=== PATIENT | female | born 1990 | race Caucasian/White ===

== ENCOUNTER 2017-08-05 22:10 | Emergency (ER) | payer SELFPAY, OTHER ==
[2017-08-05] MEDS: HYDROcodone/APAP 5/325MG 1 TAB TABLET PO (23:52)
[2017-08-05] MEDS: CLINDAMYCIN 600MG PREMIX 50 ML IV (23:52)
== END 2017-08-06 00:26 | disposition home or self-care (01) ==
LOC: ER 08-06 00:26
DX: K04.7 Periapical abscess without sinus (principal)
CPT/HCPCS: 96365; 99284-25; J3490

== ENCOUNTER 2017-08-20 07:54 | Emergency (ER) | payer SELFPAY ==
[2017-08-20 08:34] LABS: ADD MAN DIFF? NO
[2017-08-20] MEDS: IV NORMAL SALINE 1000ML BAG 1,000 ML IV (08:35)
[2017-08-20] MEDS: ONDANSETRON PF 4 MG/2 ML VIAL. IV (08:36)
[2017-08-20 08:37] LABS: BASO # 0.1 x10^3/uL (0.0-0.2); BASO % 1 % (0-3); EOS # 0.2 x10^3/uL (0.0-0.7); EOS % 1 % (0-3); HEMATOCRIT 37.2 % (36.0-47.0); LYMPH # 2.6 x10^3/uL (1.0-4.8); LYMPH % 22 % (24-48); MEAN CORPUSCULAR HEMOGLOBIN 28 pg (25-35); MEAN CORPUSCULAR HGB CONC 32 g/dL (31-37); MEAN CORPUSCULAR VOLUME 87 fL (79-100); MONO # 0.5 x10^3/uL (0.0-1.1); MONO % 5 % (0-9); NEUT # 8.4 x10^3uL (1.8-7.7); NEUT % 71 % (31-73); PLATELET COUNT 395 x10^3/uL (140-400); RED BLOOD COUNT 4.29 x10^6/uL (3.50-5.40); RED CELL DISTRIBUTION WIDTH 14.7 % (11.5-14.5); WHITE BLOOD COUNT 11.8 x10^3/uL (4.0-11.0)
[2017-08-20 08:52] LABS: ANION GAP 10 (6-14); BLOOD UREA NITROGEN 9 mg/dL (7-20); BUN/CREATININE RATIO 11 (6-20); CALCIUM 8.8 mg/dL (8.5-10.1); CARBON DIOXIDE 26 mmol/L (21-32); CHLORIDE 104 mmol/L (98-107); CREATININE 0.8 mg/dL (0.6-1.0); GFR 87.4; GLUCOSE 126 mg/dL (70-99); POTASSIUM 3.7 mmol/L (3.5-5.1); SODIUM 140 mmol/L (136-145)
[2017-08-20 08:55] LABS: ALBUMIN 3.1 g/dL (3.4-5.0); ALBUMIN/GLOBULIN RATIO 0.8 (1.0-1.7); ALK PHOS 93 U/L (46-116); ALT (SGPT) 22 U/L (14-59); AST (SGOT) 16 U/L (15-37); TOTAL BILIRUBIN 0.2 mg/dL (0.2-1.0); TOTAL PROTEIN 6.8 g/dL (6.4-8.2)
[2017-08-20 10:43] LABS: URINE HCG POC HCG NEGATIVE (Negative)
[2017-08-20 10:43] LABS: BILIRUBIN,URINE NEGATIVE (NEG); CLARITY,URINE CLEAR; COLOR,URINE YELLOW; GLUCOSE,URINE NEGATIVE (NEG); NITRITE,URINE NEGATIVE (NEG); PROTEIN,URINE NEGATIVE (NEG-TRACE); UROBILINOGEN,URINE 0.2 mg/dL (0.2 mg/dL)
[2017-08-20] MEDS: KETOROLAC 30 MG/ML INJ. IV (11:13)
[2017-08-20 11:17] LABS: AMORPHOUS SEDIMENT,UR PRESENT /HPF; BACTERIA,URINE FEW /HPF (0-FEW); RBC,URINE 0 /HPF (0-2); SQUAMOUS EPITHELIAL CELL,UR MANY /LPF
== END 2017-08-20 11:48 | disposition home or self-care (01) ==
LOC: ER 07:54
DX: R11.2 Nausea with vomiting, unspecified (principal); R19.7 Diarrhea, unspecified; R10.13 Epigastric pain; R10.11 Right upper quadrant pain
CPT/HCPCS: 36415; 76705; 80053; 81001; 81025; 85025; 87086; 96361; 96374; 96375; 99285-25; J1885; J2405; J7030

== ENCOUNTER 2017-08-25 00:35 | Emergency (ER) | payer SELFPAY ==
[2017-08-25] MEDS: DEXAMETHASONE SOD PHOS 4 MG/ML VIAL IV (01:23)
[2017-08-25] MEDS: CYCLOBENZAPRINE 10 MG TABLET. PO (01:24)
== END 2017-08-25 01:30 | disposition home or self-care (01) ==
LOC: ER 00:35
DX: M54.41 Lumbago with sciatica, right side (principal)
CPT/HCPCS: 96374; 99284-25; J1100

== ENCOUNTER 2018-11-17 20:14 | Emergency (ER) | payer SELFPAY ==
[~2018-11-17] VITALS: Ht 160 cm; Wt 88.0 kg
[~2018-11-17 20:14] MED LIST: AMOX500C PO; CLIN150C14 PO; CLIN300C8 PO; CYCL10TA2 PO; HYDR-3164 PO; METH4TAB2 PO; ONDA4TAB10 SL
[2018-11-17 20:23] VITALS: BP 132/72
[2018-11-17] MEDS ORDERED: AMOX500T PO (20:47)
[2018-11-17] MEDS ORDERED: DICL50TA4 PO (20:47)
--- NOTE | 2018-11-17 20:48 | PHYS DOC ---
Past Medical History Past Medical History: No Pertinent History (YAAKOV MONTES DE OCA APRN) Past Surgical History: Other Additional Past Surgical Histo: Dental surgery. (YAAKOV MONTES DE OCA APRN) Alcohol Use: None Drug Use: None (YAAKOV MONTES DE OCA APRN) Adult General Chief Complaint Chief Complaint: DENTAL PROBLEM HPI HPI Patient is a 28 year old female who presents to the ED today complaining of 4 out of 10 throbbing intermittent right upper and lower gum dental pain that began yesterday. Denies any fever or trismus. States she does not have a dentist. (YAAKOV MONTES DE OCA APRN) Review of Systems Review of Systems Constitutional: Denies fever or chills [] HENT: Reports dental pain Musculoskeletal: Denies back pain or joint pain [] Integument: Denies rash or skin lesions [] Neurologic: Denies headache, focal weakness or sensory changes [] All other systems were reviewed and found to be within normal limits, except as documented in this note. (YAAKOV MONTES DE OCA APRN) Allergies Allergies Allergies Coded Allergies Type Severity Reaction Last Updated Verified No Known Drug Allergies 10/21/15 No (NATHAN BARBOUR MD) Physical Exam Physical Exam Constitutional: Well developed, well nourished, no acute distress, non-toxic appearance. [] HENT: Normocephalic, atraumatic, bilateral external ears normal, nose normal. [] Patient is missing most of her molars and premolars as well as deep to the upper gum. The remaining teeth are broken and severely decayed. Gum erythema is noted on the right lower gum. No obvious abscess noted. Skin: Warm, dry, no erythema, no rash. [] Neurologic: Alert and oriented X 3, normal motor function, normal sensory function, no focal deficits noted. [] Psychologic:flat (YAAKOV MONTES DE OCA APRN) Current Patient Data Vital Signs Vital Signs Date Time Temp Pulse Resp B/P (MAP) Pulse Ox O2 Delivery O2 Flow Rate FiO2 11/17/18 20:23 98.7 104 16 132/72 (92) 98 Room Air 98.7 (NATHAN BARBOUR MD) EKG EKG [] (YAAKOV MONTES DE OCA APRN) Radiology/Procedures Radiology/Procedures [] (YAAKOV MONTES DE OCA APRN) Course & Med Decision Making Course & Med Decision Making Pertinent Labs and Imaging studies reviewed. (See chart for details) Patient has infected dental caries. Her dental hygiene is also very poor. She was provided an intravenous. Discharged with amoxicillin and diclofenac. Follow- up in the next 1-2 weeks with a dentist. Dental list provided (YAAKOV MONTES DE OCA APRN) Course & Med Decision Making Staff Physician Addendum: I was working in the ER during the course of this patient's visit. I was available for consultation as needed, but I was not directly involved in the care of this patient. (NATHAN BARBOUR MD) Dragon Disclaimer Dragon Disclaimer This electronic medical record was generated, in whole or in part, using a voice recognition dictation system. (YAAKOV MONTES DE OCA APRN) Departure Departure Impression: Primary Impression: Dentalgia Additional Impression: Infected dental caries Disposition: HOME, SELF-CARE Condition: STABLE Referrals: NO PCP (PCP) follow up with a dentist from the list provided in 1 week Patient Instructions: Dental Caries, Dental Pain Additional Instructions: You were evaluated in the emergency room for dental infection. We put you on antibiotics and pain medications, take them as prescribed. Follow-up with the dentist from the list provided in the next 1-2 weeks. Scripts Diclofenac Sodium (DICLOFENAC SODIUM) 50 Mg Tablet.dr 1 TAB PO BID, #20 TAB 0 Refills Prov: YAAKOV MONTES DE OCA APRN 11/17/18 Amoxicillin (AMOXICILLIN) 500 Mg Tablet 1 TAB PO BID, #20 TAB Prov: YAAKOV MONTES DE OCA APRN 11/17/18 Problem Qualifiers YAAKOV MONTES DE OCA APRN Nov 17, 2018 20:48 NATHAN BARBOUR MD Nov 18, 2018 05:16
== END 2018-11-17 20:57 | disposition home or self-care (01) ==
LOC: ER 20:14
DX: K02.9 Dental caries, unspecified (principal)
CPT/HCPCS: 99283

== ENCOUNTER 2018-12-22 16:28 | Emergency (ER) | payer SELFPAY ==
[~2018-12-22] VITALS: Ht 160 cm; Wt 88.0 kg
[~2018-12-22 16:28] MED LIST changes: +AMOX500T PO; +DICL50TA4 PO
[2018-12-22 18:00] VITALS: BP 138/87
[2018-12-22] MEDS ORDERED: CLIN300C8 PO (19:00)
--- NOTE | 2018-12-22 19:01 | PHYS DOC ---
Past Medical History Past Medical History: No Pertinent History Past Surgical History: Other Additional Past Surgical Histo: Dental surgery. Alcohol Use: None Drug Use: None Adult General Chief Complaint Chief Complaint: DENTAL PROBLEM HPI HPI Patient is a 28 year old female who presents with dental pain to her left upper jaw. She denies nausea or fever. She has numerous rotting teeth and does not see a dentist. Review of Systems Review of Systems Constitutional: Denies fever or chills [] Eyes: Denies change in visual acuity, redness, or eye pain [] HENT: See history of present illness Respiratory: Denies cough or shortness of breath [] Cardiovascular: No additional information not addressed in HPI [] Neurologic: Denies headache, focal weakness or sensory changes [] Endocrine: Denies polyuria or polydipsia [] All other systems were reviewed and found to be within normal limits, except as documented in this note. Allergies Allergies Allergies Coded Allergies Type Severity Reaction Last Updated Verified No Known Drug Allergies 10/21/15 No Physical Exam Physical Exam Constitutional: Well developed, well nourished, no acute distress, non-toxic appearance. [] HENT: Normocephalic, atraumatic, the patient has numerous rotting teeth with some erythema noted to the gumline Eyes: PERRLA, EOMI, conjunctiva normal, no discharge. [] Neck: Normal range of motion, no tenderness, supple, no stridor. [] Cardiovascular:Heart rate regular rhythm, no murmur [] Lungs & Thorax: Bilateral breath sounds clear to auscultation [] Neurologic: Alert and oriented X 3, normal motor function, normal sensory function, no focal deficits noted. [] Psychologic: Affect normal, judgement normal, mood normal. [] Current Patient Data Vital Signs Vital Signs Date Time Temp Pulse Resp B/P (MAP) Pulse Ox O2 Delivery O2 Flow Rate FiO2 12/22/18 18:00 98.1 98 18 138/87 (104) 99 Room Air 98.1 Lab Values Laboratory Tests Test 12/22/18 18:53 POC Urine HCG, Qualitative Hcg negative (Negative) EKG EKG [] Radiology/Procedures Radiology/Procedures [] Course & Med Decision Making Course & Med Decision Making Pertinent Labs and Imaging studies reviewed. (See chart for details) []The patient was strongly encouraged to follow up with a dentist. Dragon Disclaimer Dragon Disclaimer This electronic medical record was generated, in whole or in part, using a voice recognition dictation system. Departure Departure Impression: Primary Impression: Infected dental caries Disposition: 01 HOME, SELF-CARE Condition: STABLE Referrals: SANAZ PAUL MD (PCP) Patient Instructions: Dental Caries Additional Instructions: Take the medication as directed. Follow-up with a dentist at an earliest available appointment. You may use ibuprofen or Tylenol for pain. Scripts Clindamycin Hcl (CLINDAMYCIN HCL) 300 Mg Capsule 1 CAP PO TID for dental infection, #30 CAP Prov: DAVID WARD APRN 12/22/18 DAVID WARD APRN Dec 22, 2018 19:01
== END 2018-12-22 19:07 | disposition home or self-care (01) ==
LOC: ER 16:28
DX: K02.9 Dental caries, unspecified (principal)
CPT/HCPCS: 81025; 99283

== ENCOUNTER 2019-01-22 08:43 | Emergency (ER) | payer SELFPAY ==
[~2019-01-22] VITALS: Ht 160 cm; Wt 90.7 kg
[2019-01-22] MEDS ORDERED: IV NORMAL SALINE 1000ML BAG 1,000 ML IV SCH (08:55)
--- NOTE | 2019-01-22 09:01 | PHYS DOC ---
Past Medical History Past Medical History: No Pertinent History Past Surgical History: Other Additional Past Surgical Histo: Dental surgery. Smoking: Cigarettes Alcohol Use: None Drug Use: Methamphetamine (currently sober) Adult General Chief Complaint Chief Complaint: DIZZY/LIGHT HEADED HPI HPI patient is a 28-year-old female who presents to the emergency department for quin luation. She reports general malaise and just not feeling well, feeling dizzy and lightheaded, and shaky, after starting Cymbalta yesterday, to treat depression. She denies any pain, denies any headache, vision changes, chest pain, palpitations, shortness of breath, vomiting, diarrhea, or abdominal pain. Her LMP ended yesterday. There are no alleviating or exacerbating factors to her symptoms. Review of Systems Review of Systems Constitutional: Denies fever or chills [] Eyes: Denies change in visual acuity, redness, or eye pain [] HENT: Denies nasal congestion or sore throat [] Respiratory: Denies cough or shortness of breath [] Cardiovascular:The patient denies any shortness of breath, chest pain, palpitations, or orthopnea [] GI: Denies abdominal pain, vomiting, bloody stools or diarrhea [] : Denies dysuria or hematuria [] Musculoskeletal: Denies back pain or joint pain [] Integument: Denies rash or skin lesions [] Neurologic: Denies headache, focal weakness or sensory changes [] Endocrine: Denies polyuria or polydipsia [] All other systems were reviewed and found to be within normal limits, except as documented in this note. Current Medications Current Medications Current Medications Medications (Trade) Dose Ordered Sig/Aarti Start Time Stop Time Status Last Admin Dose Admin Sodium Chloride 1,000 ml @ 1,000 mls/hr Q1H 01/22/19 08:55 01/22/19 09:54 DC 01/22/19 09:20 1,000 MLS/HR Allergies Allergies Allergies Coded Allergies Type Severity Reaction Last Updated Verified No Known Drug Allergies 10/21/15 No Physical Exam Physical Exam PHYSICAL EXAM: CONSTITUTIONAL: Well developed, well nourished HEAD: normocephalic, atraumatic EENT: PERRL, EOMI. Conjunctivae normal color, sclerae non-icteric; moist mucous membranes. NECK: Supple, non-tender; no meningismus. LUNGS: Lungs CTA, breathing even and unlabored. Normal air movement. HEART: Regular rate and rhythm, no murmur CHEST: No deformity; non-tender ABDOMEN: The abdomen is soft, and non-tender, no masses or bruits. EXTREM: Normal ROM; no deformity, no calf tenderness. Normal pulses palpable in all extremities. There is no pedal edema. SKIN: No rash; no diaphoresis NEURO: Alert; normal speech and cognition; CN's grossly intact; strength grossly intact without focal deficit. BACK: No CVA TTP. PSYCHIATRIC: Moderately anxious affect. Current Patient Data Vital Signs Vital Signs Date Time Temp Pulse Resp B/P (MAP) Pulse Ox O2 Delivery O2 Flow Rate FiO2 01/22/19 08:51 98.4 75 18 133/74 (93) 97 Room Air 98.4 Lab Values Laboratory Tests Test 01/22/19 08:56 01/22/19 08:58 01/22/19 09:12 Urine Collection Type Unknown Urine Color Yellow Urine Clarity Clear Urine pH 5.5 Urine Specific [place] >=1.030 Urine Protein Negative mg/dL (NEG-TRACE) Urine Glucose (UA) Negative mg/dL (NEG) Urine Ketones (Stick) Negative mg/dL (NEG) Urine Blood Negative (NEG) Urine Nitrite Negative (NEG) Urine Bilirubin Negative (NEG) Urine Urobilinogen Dipstick 1.0 mg/dL (0.2 mg/dL) Urine Leukocyte Esterase Negative (NEG) Urine RBC 0 /HPF (0-2) Urine WBC 1-4 /HPF (0-4) Urine Squamous Epithelial Cells Mod /LPF Urine Bacteria Few /HPF (0-FEW) Urine Mucus Marked /LPF POC Urine HCG, Qualitative Hcg negative (Negative) White Blood Count 8.8 x10^3/uL (4.0-11.0) Red Blood Count 4.09 x10^6/uL (3.50-5.40) Hemoglobin 12.6 g/dL (12.0-15.5) Hematocrit 36.8 % (36.0-47.0) Mean Corpuscular Volume 90 fL (79-100) Mean Corpuscular Hemoglobin 31 pg (25-35) Mean Corpuscular Hemoglobin Concent 34 g/dL (31-37) Red Cell Distribution Width 14.0 % (11.5-14.5) Platelet Count 288 x10^3/uL (140-400) Neutrophils (%) (Auto) 71 % (31-73) Lymphocytes (%) (Auto) 21 % (24-48) L Monocytes (%) (Auto) 5 % (0-9) Eosinophils (%) (Auto) 2 % (0-3) Basophils (%) (Auto) 1 % (0-3) Neutrophils # (Auto) 6.2 x10^3/uL (1.8-7.7) Lymphocytes # (Auto) 1.9 x10^3/uL (1.0-4.8) Monocytes # (Auto) 0.4 x10^3/uL (0.0-1.1) Eosinophils # (Auto) 0.2 x10^3/uL (0.0-0.7) Basophils # (Auto) 0.1 x10^3/uL (0.0-0.2) Sodium Level 141 mmol/L (136-145) Potassium Level 4.0 mmol/L (3.5-5.1) Chloride Level 106 mmol/L (98-107) Carbon Dioxide Level 23 mmol/L (21-32) Anion Gap 12 (6-14) Blood Urea Nitrogen 17 mg/dL (7-20) Creatinine 0.8 mg/dL (0.6-1.0) Estimated GFR (Cockcroft-Gault) 86.7 BUN/Creatinine Ratio 21 (6-20) H Glucose Level 96 mg/dL (70-99) Calcium Level 9.1 mg/dL (8.5-10.1) Magnesium Level 1.9 mg/dL (1.8-2.4) Total Bilirubin 0.4 mg/dL (0.2-1.0) Aspartate Amino Transferase (AST) 29 U/L (15-37) Alanine Aminotransferase (ALT) 20 U/L (14-59) Alkaline Phosphatase 90 U/L (46-116) Total Protein 7.1 g/dL (6.4-8.2) Albumin 3.9 g/dL (3.4-5.0) Albumin/Globulin Ratio 1.2 (1.0-1.7) Thyroid Stimulating Hormone (TSH) 1.825 uIU/mL (0.358-3.74) Free Thyroxine 1.00 ng/dL (0.76-1.46) Laboratory Tests 01/22/19 09:12 Laboratory Tests 01/22/19 09:12 EKG EKG []Normal sinus rhythm with a normal rate, normal axis, normal intervals, there are no acute ischemic ST/T changes. Radiology/Procedures Radiology/Procedures [] Course & Med Decision Making Course & Med Decision Making Pertinent Lab studies reviewed. (See chart for details) []Patient condition remains stable. I discussed expectant and symptomatic management, the need for close follow-up with her PCP to discuss either continuing her stopping or changing the medication, and return precautions in detail. Dragon Disclaimer Dragon Disclaimer This electronic medical record was generated, in whole or in part, using a voice recognition dictation system. Departure Departure Impression: Primary Impression: Medication reaction Additional Impression: Dizziness Disposition: 01 HOME, SELF-CARE Condition: STABLE Referrals: SANAZ PAUL MD (PCP) Patient Instructions: Dizziness Problem Qualifiers PRATIBHA PRICE MD Jan 22, 2019 09:01
[2019-01-22 09:08] LABS: BILIRUBIN,URINE NEGATIVE (NEG); CLARITY,URINE CLEAR; COLOR,URINE YELLOW; NITRITE,URINE NEGATIVE (NEG); PH,URINE 5.5; PROTEIN,URINE NEGATIVE (NEG-TRACE)
--- NOTE | 2019-01-22 09:08 | EKG ---
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
[2019-01-22 09:16] LABS: SQUAMOUS EPITHELIAL CELL,UR MOD /LPF
[2019-01-22 09:17] LABS: BACTERIA,URINE FEW /HPF (0-FEW); RBC,URINE 0 /HPF (0-2)
[2019-01-22 09:21] LABS: BASO # 0.1 x10^3/uL (0.0-0.2); BASO % 1 % (0-3); EOS # 0.2 x10^3/uL (0.0-0.7); EOS % 2 % (0-3); HEMATOCRIT 36.8 % (36.0-47.0); HEMOGLOBIN 12.6 g/dL (12.0-15.5); LYMPH # 1.9 x10^3/uL (1.0-4.8); LYMPH % 21 % (24-48); MEAN CORPUSCULAR HEMOGLOBIN 31 pg (25-35); MEAN CORPUSCULAR HGB CONC 34 g/dL (31-37); MEAN CORPUSCULAR VOLUME 90 fL (79-100); MONO # 0.4 x10^3/uL (0.0-1.1); MONO % 5 % (0-9); NEUT # 6.2 x10^3/uL (1.8-7.7); NEUT % 71 % (31-73); PLATELET COUNT 288 x10^3/uL (140-400); RED BLOOD COUNT 4.09 x10^6/uL (3.50-5.40); WHITE BLOOD COUNT 8.8 x10^3/uL (4.0-11.0)
[2019-01-22 09:32] LABS: CALCIUM 9.1 mg/dL (8.5-10.1); CREATININE 0.8 mg/dL (0.6-1.0); GFR 86.7
[2019-01-22 09:38] LABS: ALBUMIN 3.9 g/dL (3.4-5.0); ALBUMIN/GLOBULIN RATIO 1.2 (1.0-1.7); MAGNESIUM 1.9 mg/dL (1.8-2.4); TOTAL BILIRUBIN 0.4 mg/dL (0.2-1.0); TOTAL PROTEIN 7.1 g/dL (6.4-8.2)
[2019-01-22 09:46] LABS: THYROID STIM HORMONE (TSH) 1.825 uIU/mL (0.358-3.74)
[2019-01-22 10:30] VITALS: BP 81/59
== END 2019-01-22 10:37 | disposition home or self-care (01) ==
LOC: ER 08:43
DX: R42 Dizziness and giddiness (principal); T43.215A Adverse effect of selective serotonin and norepinephrine reuptake inhibitors, initial encounter; F17.210 Nicotine dependence, cigarettes, uncomplicated; Y92.89 Other specified places as the place of occurrence of the external cause
CPT/HCPCS: 36415; 80053; 81001; 81025; 83735; 84439; 84443; 85025; 93005; 96360; 99285; J7030

== ENCOUNTER 2019-04-04 16:56 | Emergency (ER) | payer SELFPAY ==
[~2019-04-04] VITALS: Ht 160 cm; Wt 99.8 kg
[2019-04-04 17:10] VITALS: BP 150/75
[2019-04-04 17:21] LABS: BILIRUBIN,URINE NEGATIVE (NEG); CLARITY,URINE CLEAR; COLOR,URINE YELLOW; NITRITE,URINE NEGATIVE (NEG); PH,URINE 7.5; PROTEIN,URINE NEGATIVE (NEG-TRACE); UROBILINOGEN,URINE 0.2 mg/dL (0.2 mg/dL)
[2019-04-04 17:28] LABS: SQUAMOUS EPITHELIAL CELL,UR MANY /LPF
[2019-04-04 17:29] LABS: AMORPHOUS SEDIMENT,UR PRESENT /HPF; BACTERIA,URINE 0 /HPF (0-FEW); RBC,URINE 0 /HPF (0-2)
[2019-04-04] MEDS ORDERED: cefTRIAXone IM 250 MG VIAL IM ONE (18:15)
[2019-04-04] MEDS ORDERED: AZITHROMYCIN 250 MG TABLET. PO ONE (18:15)
--- NOTE | 2019-04-04 18:39 | PHYS DOC ---
Past Medical History Past Medical History: Anxiety, Depression Past Surgical History: Other Additional Past Surgical Histo: Dental surgery. Additional Information: VAPES Alcohol Use: None Drug Use: Methamphetamine Adult General Chief Complaint Chief Complaint: ABDOMINAL PAIN HPI HPI Patient is a 28 year old female who presents to the emergency department with complaints of irregular vaginal discharge and concerns of a trichomonas infection. Patient states she was informed yesterday of a recent sex partner testing positive for Trichomonas. She denies any pelvic pain or irregular vaginal bleeding or odor. Patient also denies any dysuria, hematuria, increased urinary frequency, low back pain, abdominal pain, or fever. All other ROS is neg unless otherwise noted in HPI. Review of Systems Review of Systems See Above Current Medications Current Medications Current Medications Medications (Trade) Dose Ordered Sig/Aarti Start Time Stop Time Status Last Admin Dose Admin Azithromycin (Zithromax) 1,000 mg 1X ONCE 04/04/19 18:15 04/04/19 18:16 DC 04/04/19 18:25 1,000 MG Ceftriaxone Sodium (Rocephin Im) 250 mg 1X ONCE 04/04/19 18:15 04/04/19 18:16 DC 04/04/19 18:25 250 MG Allergies Allergies Allergies Coded Allergies Type Severity Reaction Last Updated Verified No Known Drug Allergies 10/21/15 No Physical Exam Physical Exam See Above Constitutional: Well developed, well nourished, no acute distress, non-toxic appearance. [] HENT: Normocephalic, atraumatic, bilateral external ears normal, oropharynx moist, no oral exudates, nose normal. [] Eyes: PERRLA, EOMI, conjunctiva normal, no discharge. [] Neck: Normal range of motion, no stridor. 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 [] Back: No tenderness, no CVA tenderness. [] Extremities: No cyanosis, ROM intact, no edema. [] Neurologic: Alert and oriented X 3, no focal deficits noted. [] Psychologic: Affect normal, judgement normal, mood normal. [] Current Patient Data Vital Signs Vital Signs Date Time Temp Pulse Resp B/P (MAP) Pulse Ox O2 Delivery O2 Flow Rate FiO2 04/04/19 17:10 99.1 68 18 150/75 (100) 98 Room Air 99.1 Lab Values Laboratory Tests Test 04/04/19 17:14 Urine Collection Type Unknown Urine Color Yellow Urine Clarity Clear Urine pH 7.5 Urine Specific [place] 1.010 Urine Protein Negative mg/dL (NEG-TRACE) Urine Glucose (UA) Negative mg/dL (NEG) Urine Ketones (Stick) Negative mg/dL (NEG) Urine Blood Negative (NEG) Urine Nitrite Negative (NEG) Urine Bilirubin Negative (NEG) Urine Urobilinogen Dipstick 0.2 mg/dL (0.2 mg/dL) Urine Leukocyte Esterase Trace (NEG) Urine RBC 0 /HPF (0-2) Urine WBC 5-10 /HPF (0-4) Urine Squamous Epithelial Cells Many /LPF Urine Amorphous Sediment Present /HPF Urine Bacteria 0 /HPF (0-FEW) Urine Mucus Slight /LPF POC Urine HCG, Qualitative Hcg negative (Negative) Microbiology 04/04/19 Wet Prep - Final, Complete EKG EKG [] Radiology/Procedures Radiology/Procedures [] Course & Med Decision Making Course & Med Decision Making Pertinent Labs and Imaging studies reviewed. (See chart for details) dx: Irregular vaginal discharge, suspected sexually transmitted infection Wet mount was negative for Trichomonas or BV Patient was treated prophylactically with 250 mg of IM Rocephin, and 1 g of PO Z ithromax. Patient was instructed to avoid having intercourse until the results of gonorrhea and chlamydia testing are available, patient was notified that these results would not be available for 48 hours. If one or both of these tests is positive, patient needs to refrain from intercourse for approximately 1 week following the treatment of any current partners. PT verbalized an understanding of home care, medications, follow-up, and return to ED instructions and was in agreement with the plan of care. [] Dragon Disclaimer Dragon Disclaimer This electronic medical record was generated, in whole or in part, using a voice recognition dictation system. Departure Departure Impression: Primary Impression: Vaginal discharge Additional Impression: Contact with and (suspected) exposure to infections with a predominantly sexual mode of transmission Disposition: HOME, SELF-CARE Condition: STABLE Referrals: SANAZ PAUL MD (PCP) Patient Instructions: Sexually Transmitted Disease, [id number] Additional Instructions: Your Trichomonas testing was negative today. Recommend that you go to your local health department for comprehensive sexually transmitted disease testing. You have been treated for a suspected gonorrhea and chlamydia. Avoid having intercourse until the results of gonorrhea and chlamydia testing are available, these results will not be available for 48 hours. If one or both of these tests is positive, you need to refrain from intercourse for approximately 1 week following the treatment of any current partners. Follow-up with your primary care doctor if symptoms persist, return to ER symptoms worsen. Problem Qualifiers DEMETRA ESPINAL WATER CHEMIST Apr 04, 2019 18:39
[2019-04-06 18:09] LABS: GC PROBE Negative (Negative)
== END 2019-04-04 18:53 | disposition home or self-care (01) ==
LOC: ER 16:56
DX: N89.8 Other specified noninflammatory disorders of vagina (principal); Z20.2 Contact with and (suspected) exposure to infections with a predominantly sexual mode of transmission
CPT/HCPCS: 81001; 81025; 87086; 87491; 87591; 96372; 99284; J0696; Q0111; Q0144

== ENCOUNTER 2021-09-11 03:15 | Emergency (ER) | payer SELFPAY ==
[~2021-09-11] VITALS: Ht 160 cm; Wt 95.4 kg
[~2021-09-11 03:15] MED LIST changes: +CLIN-94 PO; -CLIN150C14 PO; +CLIN150C16 PO; -CLIN300C8 PO; +CYCL10TA19 PO; -CYCL10TA2 PO
--- NOTE | 2021-09-11 03:51 | PHYS DOC ---
Past Medical History Past Medical History: Anxiety, Depression Past Surgical History: Other Additional Past Surgical Histo: Dental surgery. Smoking Status: Former Smoker Alcohol Use: None Drug Use: Methamphetamine General Adult EDM: Chief Complaint: left leg pain, left ankle pain HPI: HPI: Patient is a 31 year old male who presented to ER for evaluation of left foot and ankle swelling and pain with redness that she noted at 11:30 PM last night. Patient denies any injury patient denies any chest pain, no abdominal pain, no nausea vomiting, no trouble breathing. Patient says she hears started using a new powder to put in her shoe, not sure if she had allergic reaction to it Review of Systems: Review of Systems: Constitutional: Denies fever or chills. [] Eyes: Denies change in visual acuity. [] HENT: Denies nasal congestion or sore throat. [] Respiratory: Denies cough or shortness of breath. [] Cardiovascular: Denies chest pain or edema. [] GI: Denies abdominal pain, nausea, vomiting, bloody stools or diarrhea. [] : Denies dysuria. [] Musculoskeletal: Denies back pain or joint pain. [] Integument: Denies rash. [] Neurologic: Denies headache, focal weakness or sensory changes. [] Endocrine: Denies polyuria or polydipsia. [] Lymphatic: Denies swollen glands. [] Psychiatric: Denies depression or anxiety. [] Heart Score: C/O Chest Pain: N/A Risk Factors: Risk Factors: DM, Current or recent (<one month) smoker, HTN, HLP, family history of CAD, obesity. Risk Scores: Score 0 - 3: 2.5% MACE over next 6 weeks - Discharge Home Score 4 - 6: 20.3% MACE over next 6 weeks - Admit for Clinical Observation Score 7 - 10: 72.7% MACE over next 6 weeks - Early Invasive Strategies Current Medications: Current Medications Medications (Trade) Dose Ordered Sig/Aarti Start Time Stop Time Status Last Admin Dose Admin Cefazolin Sodium/ Dextrose 50 ml @ 100 mls/hr 1X ONCE 09/11/21 03:30 09/11/21 03:59 09/11/21 03:40 100 MLS/HR Allergies: Allergies: Allergies Coded Allergies Type Severity Reaction Last Updated Verified No Known Drug Allergies 10/21/15 No Physical Exam: PE: Constitutional: Well developed, well nourished, no acute distress, non-toxic appearance. [] HENT: Normocephalic, atraumatic, bilateral external ears normal, oropharynx moist, no oral exudates, nose normal. [] Eyes: PERRLA, EOMI, conjunctiva normal, no discharge. [] Neck: Normal range of motion, no tenderness, supple, no stridor. [] Cardiovascular:Heart rate regular rhythm, no murmur [] Lungs & Thorax: Bilateral breath sounds clear to auscultation [] Abdomen: Bowel sounds normal, soft, no tenderness, no masses, no pulsatile masses. [] Skin: Warm, dry, both feet and both ankle with erythema , the left side is more swollen. Back: No tenderness, no CVA tenderness. [] Extremities: No tenderness, no cyanosis, no clubbing, ROM intact, no edema. [] Neurologic: Alert and oriented X 3, normal motor function, normal sensory function, no focal deficits noted. [] Psychologic: Affect normal, judgement normal, mood normal. [] Current Patient Data: Labs: Laboratory Tests Test 09/11/21 03:39 White Blood Count 11.8 x10^3/uL Red Blood Count 4.10 x10^6/uL Hemoglobin 12.4 g/dL Hematocrit 36.5 % Mean Corpuscular Volume 89 fL Mean Corpuscular Hemoglobin 30 pg Mean Corpuscular Hemoglobin Concent 34 g/dL Red Cell Distribution Width 14.0 % Platelet Count 317 x10^3/uL Neutrophils (%) (Auto) 75 % Lymphocytes (%) (Auto) 19 % Monocytes (%) (Auto) 5 % Eosinophils (%) (Auto) 1 % Basophils (%) (Auto) 1 % Neutrophils # (Auto) 8.8 x10^3/uL Lymphocytes # (Auto) 2.2 x10^3/uL Monocytes # (Auto) 0.6 x10^3/uL Eosinophils # (Auto) 0.1 x10^3/uL Basophils # (Auto) 0.1 x10^3/uL Current Medications Medications (Trade) Dose Ordered Sig/Aarti Route PRN Reason Start Time Stop Time Status Last Admin Dose Admin Cefazolin Sodium/ Dextrose 50 ml @ 100 mls/hr 1X ONCE IV 09/11/21 03:30 09/11/21 03:59 DC 09/11/21 03:40 Methylprednisolone Sodium Succinate (SOLU-Medrol 125MG VIAL) 125 mg 1X ONCE IV 09/11/21 04:00 09/11/21 04:01 DC 09/11/21 04:03 Diphenhydramine HCl (Benadryl) 50 mg 1X ONCE IVP 09/11/21 04:00 09/11/21 04:01 DC 09/11/21 04:03 EKG: EKG: [] Radiology/Procedures: Radiology/Procedures: [][facility] [address] [place] [address] IMAGING REPORT Signed PATIENT: SHONA SHARMA ACCOUNT: [id number] : 1990 LOCATION: ER AGE: 31 SEX: F EXAM STATUS: PRE ER ORD. PHYSICIAN: RENE CLEMENT DO REASON: LEFT LEG PAIN AND SWELLING PROCEDURE: VENOUS LOWER EXTREMITY LEFT INDICATION: Reason: LEFT LEG PAIN AND SWELLING / Spl. Instructions: / History: COMPARISON: None. TECHNIQUE: Grayscale, color and doppler ultrasound images were obtained of the left lower extremity venous vasculature. LEFT: No thrombus identified in the common femoral vein, femoral vein, popliteal vein or visualized calf veins. IMPRESSION: * No thrombus identified in deep venous system of the left lower extremity. Electronically signed by: Mayelin Dunlap MD (09/11/2021 4:25 AM) [id number] DICTATED and SIGNED BY: MAYELIN DUNLAP MD DATE: 09/11/21 0424 Course & Med Decision Making: Course & Med Decision Making Pertinent Labs and Imaging studies reviewed. (See chart for details) Patient is a 31-year-old female who presented to ER for evaluation of left foot and ankle swelling. Venous Doppler did not show any evidence of DVT, her symptom is most likely due to contact dermatitis, allergic reaction to the powder that she put on her shoes. Patient says she will throw her shoe wear, patient will be given steroids to take at home. Dragon Disclaimer: Dragon Disclaimer: This electronic medical record was generated, in whole or in part, using a voice recognition dictation system. Departure Departure Impression: Primary Impression: Contact dermatitis Disposition: HOME / SELF CARE / HOMELESS Condition: IMPROVED Referrals: SANAZ PAUL MD (PCP) Follow up with your doctor this week for reevaluation Patient Instructions: Contact Dermatitis Additional Instructions: Thank you for visiting our Emergency Department. We appreciate you trusting us with your care. If any additional problems come up don't hesitate to return to visit us. Please follow up with your primary care provider so they can plan additional care if needed and know about the problem that you had. If symptoms worsen come back to the Emergency Department. Any concerning symptoms that start such as chest pain, shortness of air, weakness or numbness on one side of the body, running high fevers or any other concerning symptoms return to the ER. Scripts Famotidine (PEPCID) 20 Mg Tablet 20 MG PO HS for 7 Days, #7 TAB Prov: RENE CLEMENT DO 09/11/21 Prednisone (PREDNISONE) 20 Mg Tablet 2 TAB PO DAILY for 5 Days, #10 TAB Prov: RENE CLEMENT DO 09/11/21 RENE CLEMENT DO September 11, 2021 03:51
[2021-09-11] MEDS ORDERED: diphenhydrAMINE 50 MG/ML VIAL IVP ONE (04:00)
[2021-09-11] MEDS ORDERED: methylPREDNISolone SOD SUCC PF 125 MG/2 ML VIAL. IV ONE (04:00)
[2021-09-11 04:02] LABS: BASO # 0.1 x10^3/uL (0.0-0.2); BASO % 1 % (0-3); EOS # 0.1 x10^3/uL (0.0-0.7); EOS % 1 % (0-3); HEMATOCRIT 36.5 % (36.0-47.0); HEMOGLOBIN 12.4 g/dL (12.0-15.5); LYMPH # 2.2 x10^3/uL (1.0-4.8); LYMPH % 19 % (24-48); MEAN CORPUSCULAR HEMOGLOBIN 30 pg (25-35); MEAN CORPUSCULAR HGB CONC 34 g/dL (31-37); MEAN CORPUSCULAR VOLUME 89 fL (79-100); MONO # 0.6 x10^3/uL (0.0-1.1); MONO % 5 % (0-9); NEUT # 8.8 x10^3/uL (1.8-7.7); NEUT % 75 % (31-73); PLATELET COUNT 317 x10^3/uL (140-400); WHITE BLOOD COUNT 11.8 x10^3/uL (4.0-11.0)
--- NOTE | 2021-09-11 04:27 | RAD ---
INDICATION: Reason: LEFT LEG PAIN AND SWELLING / Spl. Instructions: / History: COMPARISON: None. TECHNIQUE: Grayscale, color and doppler ultrasound images were obtained of the left lower extremity v enous vasculature. LEFT: No thrombus identified in the common femoral vein, femoral vein, popliteal vein or visualized calf ve ins. IMPRESSION: * No thrombus identified in deep venous system of the left lower extremity. Electronically signed by: Fidencio Richards MD (09/11/2021 4:25 AM) [id number]
[2021-09-11 04:49] VITALS: BP 133/64
[2021-09-11] MEDS ORDERED: PRED20TA PO (05:11)
[2021-09-11] MEDS ORDERED: FAMO-63 PO (05:12)
== END 2021-09-11 05:17 | disposition home or self-care (01) ==
LOC: ER 03:15
DX: L25.9 Unspecified contact dermatitis, unspecified cause (principal)
CPT/HCPCS: 36415; 85025; 93971; 96365; 96375; 99284; J0690; J1200; J2930